=== PATIENT | male | born 1955 | race Caucasian/White ===

== ENCOUNTER 2019-05-25 10:01 | Emergency (ER) | payer BC ==
--- NOTE | 2019-05-25 10:13 | UC ---
Skin Complaint HPI - HPI Summary HPI Summary: 63-year-old male presents with complaints of bull's-eye rash to his left upper arm that started 2 days ago. No known tick bite. Denies fever, chills, flulike symptoms, myalgias, joint pain or swelling. - History of Current Complaint Time Seen by Provider: 05/25/19 10:11 Stated Complaint: TICK BITE Hx Obtained From: Patient - Allergy/Home Medications Allergies/Adverse Reactions: Allergies Allergy/AdvReac Type Severity Reaction Status Date / Time No Known Allergies Allergy Verified 05/25/19 10:08 PMH/Surg Hx/FS Hx/Imm Hx Previously Healthy: Yes - Denies significant PMH - Family History Known Family History: Positive: Non-Contributory - Social History Occupation: Employed Full-time Lives: With Family Review of Systems All Other Systems Reviewed And Are Negative: Yes Constitutional: Negative: Fever, Chills Skin: Positive: Rash Respiratory: Positive: Negative Cardiovascular: Positive: Negative Gastrointestinal: Positive: Negative Genitourinary: Positive: Negative Musculoskeletal: Negative: Arthralgia, Myalgia Neurological: Positive: Negative Is Patient Immunocompromised?: Yes Physical Exam - Summary Physical Exam Summary: GENERAL APPEARANCE: Well developed, well nourished, alert and cooperative, and appears to be in no acute distress. CARDIAC: Normal S1 and S2. No S3, S4 or murmurs. Rhythm is regular. There is no peripheral edema, cyanosis or pallor. Extremities are warm and well perfused. Capillary refill is less than 2 seconds. Peripheral pulses intact. LUNGS: Clear to auscultation without rales, rhonchi, wheezing or diminished breath sounds. ABDOMEN: Positive bowel sounds. Soft, nondistended, nontender. No guarding or rebound. No masses or hepatosplenomegally. MUSKULOSKELETAL: ROM intact to all extremities. No joint erythema or tenderness. Normal muscular development. Normal gait. SKIN: Skin normal color, texture and turgor. 8 cm, oval-shaped, bulls-eye rash noted to the proximal, anterior, left upper arm. Triage Information Reviewed: Yes Vital Signs Reviewed: Yes Course/Dx - Course Course Of Treatment: 63-year-old male presents with complaints of bull's-eye rash to his left upper arm that started 2 days ago. No known tick bite. Denies fever, chills, flulike symptoms, myalgias, joint pain or swelling. Afebrile. Vital signs stable. Patient has 8 cm, oval-shaped, bulls-eye rash noted to the proximal, anterior, left upper arm that is consistent with erythema migrans. We will treat him for likely early Lyme disease with doxycycline 100 mg twice a day 3 weeks. He is to follow-up with his primary care provider as needed. Anticipatory guidance and warning symptoms were reviewed with the patient. Verbalizes understanding and agrees with plan of care. - Differential Diagnoses - Skin Complaint Differential Diagnoses: Local Allergic Reaction, Tick Born Illness - Diagnoses Provider Diagnosis: Erythema migrans (Lyme disease) Discharge - Sign-Out/Discharge Documenting (check all that apply): Patient Departure All imaging exams completed and their final reports reviewed: No Studies - Discharge Plan Condition: Stable Disposition: HOME Prescriptions: Doxycycline Hyclate 100 mg PO BID #42 tablet Patient Education Materials: Lyme Disease (ED), Tick Bite (ED) Referrals: No Primary Care Phys,NOPCP [Primary Care Provider] - Additional Instructions: Your rash is concerning for Lyme disease therefore we will treat you for this. Start doxycycline 100 mg twice a day for 3 weeks. Do not drink milk or eat milk products for 2 hours before or after taking this antibiotic as it can affect the absorption of the medication. You also need to avoid sun exposure or use precautions such as sunscreen, hats, and long-sleeves if you are in the sun as this medication will cause you to burn more easily. There is no benefit of blood testing for Lyme disease at the time of the tick bite because even people who become infected will not have a positive blood test until approximately two to six weeks after the tick bite. To try to avoid getting bitten by a tick, you can: * Wear shoes, long-sleeved shirts, and long pants when you go outside. Keep ticks away from your skin by tucking your pants into your socks. * Wear light colors so you can spot any ticks that get on your clothes. * Wear bug spray or cream that contains DEET. (Do not use DEET on babies younger than 2 months.) On your clothes and gear, you can use bug repellents that have a chemical called "permethrin." * Shower within 2 hours of being outdoors if you think you have been in an area where there are ticks. * Put dry clothes briefly (for about 4 minutes) in a dryer after being outdoors. * Check your clothes and body for ticks after being outdoors. Be sure to check your scalp, waist, armpits, groin, and backs of your knees. Check your children , too. Follow up with your primary care provider as needed. Seek immediate medical attention if you develop a fever, flu-like symptoms including headache, stiff neck, fatigue, muscle aches, joint pain or swelling. - Billing Disposition and Condition Condition: STABLE Disposition: Home
[2019-05-25 10:14] VITALS: BP 132/89
== END 2019-05-25 10:31 | disposition home or self-care (01) ==
LOC: UCEAST 10:01
DX: A69.20 Lyme disease, unspecified (principal)
CPT/HCPCS: 99202; G0463